=== PATIENT | male | born 1940 | race Hispanic/Latino ===

== ENCOUNTER → 2017-08-05 | Outpatient (CLI) | payer OTHER | END | disposition home or self-care (01) | LOC: OIH 08:01 | PROVIDERS: ATTEND Family Medicine | DX: I10 Essential (primary) hypertension (principal); I70.0 Atherosclerosis of aorta | CPT/HCPCS: 71046 ==

== ENCOUNTER 2022-02-11 17:25 | Emergency (ER) | payer OTHER ==
[~2022-02-11] VITALS: Ht 182.9 cm; Wt 81.6 kg
[2022-02-11] MEDS ORDERED: TETANUS/DIPHTHERIA TOXOID [ADULT] 0.5 ML VIAL IM ONE (18:30)
[2022-02-11 19:11] VITALS: BP 134/74
== END 2022-02-11 19:26 | disposition home or self-care (01) ==
LOC: EDH 17:25
DX: T23.122 Burn of first degree of single left finger (nail) except thumb (principal); I10 Essential (primary) hypertension; Z90.49 Acquired absence of other specified parts of digestive tract; M47.22 Other spondylosis with radiculopathy, cervical region; Z48.02 Encounter for removal of sutures; X08.8XXA Exposure to other specified smoke, fire and flames, initial encounter; Y93.89 Activity, other specified; Y92.89 Other specified places as the place of occurrence of the external cause; Y99.8 Other external cause status
CPT/HCPCS: 72040; 90471; 90714; 96372

== ENCOUNTER → 2023-03-20 | Outpatient (CLI) | payer OTHER ==
[~2023-03-20] MED LIST: BENZ-39 PO; NAPR-1023 PO; SULF1TAB42 PO; TAMS-1 PO
== END | disposition home or self-care (01) ==
LOC: RAH 11:16
PROVIDERS: ATTEND Family Medicine
DX: R04.2 Hemoptysis (principal)
CPT/HCPCS: 71046

== ENCOUNTER 2023-10-08 21:01 | Emergency (ER) | payer OTHER ==
[~2023-10-08] VITALS: Ht 182.9 cm; Wt 71.7 kg
[2023-10-08 21:49] LABS: BASOPHILS # (AUTO) 0.03 K/uL (0.00-0.20); BASOPHILS % (AUTO) 0.4 % (0.0-5.0); EOSINOPHILS # (AUTO) 0.08 K/uL (0.00-0.70); EOSINOPHILS % (AUTO) 0.9 % (0.0-8.0); HEMATOCRIT 40.2 % (42-54); IMMATURE GRANULOCYTE ABSOLUTE 0.06 K/uL (0-1); LYMPHOCYTES # (AUTO) 0.4 K/uL (1.0-4.8); LYMPHOCYTES % (AUTO) 4.6 % (21.0-51.0); MEAN CORPUSCULAR HEMOGLOBIN 27.7 pg (27.0-33.0); MEAN CORPUSCULAR HGB CONC 32.3 g/dL (32.0-36.0); MEAN CORPUSCULAR VOLUME 85.7 fL (79-99); MONOCYTES # (AUTO) 0.8 K/uL (0.1-1.0); MONOCYTES % (AUTO) 8.9 % (3.0-13.0); NEUTROPHILS # (AUTO) 7.2 K/uL (1.8-7.7); NEUTROPHILS % (AUTO) 84.5 % (40.0-77.0); PLATELET COUNT (AUTO) 174 K/uL (130-400); RED BLOOD CELL COUNT(AUTO) 4.69 MIL/uL (4.50-6.20); RED CELL DISTRIBUTION WIDTH 16.7 % (11.0-15.5); WHITE BLOOD COUNT (AUTO) 8.6 K/uL (4.8-10.8)
[2023-10-08 22:01] LABS: INR 1.04 (0.85-1.15); PROTHROMBIN TIME 11.2 SEC (9.6-11.6)
[2023-10-08 22:03] LABS: PARTIAL THROMBOPLASTIN TIME 27.9 SEC (26.3-35.5); POTASSIUM 3.7 mmol/L (3.5-5.1)
[2023-10-08 22:08] LABS: ALBUMIN 3.4 g/dL (3.5-5.0); BILIRUBIN,TOTAL 0.4 mg/dL (0.2-1.0); TOTAL PROTEIN, SERUM 6.9 g/dL (6.0-8.3)
[2023-10-08] MEDS: MORPHINE 4 MG SYG IVP ONE (22:31)
[2023-10-08] MEDS: ONDANSETRON 4MG INJ IVP ONE (22:32)
[2023-10-09] MEDS: CEFTRIAXONE 1G VIAL IVPB ONE (00:25)
[2023-10-09] MEDS: AZITHROMYCIN 500MG+NS 250ML 250 ML IVPB SCH (00:25)
[2023-10-09] MEDS ORDERED: AMOX-426 PO (02:04)
[2023-10-09] MEDS ORDERED: AZIT250T PO (02:04)
[2023-10-09 03:01] VITALS: BP 132/74; PULSE 76; RESP 16; O2SAT 98
== END 2023-10-09 03:03 | disposition home or self-care (01) ==
LOC: EDH 21:01
DX: S42.031A Displaced fracture of lateral end of right clavicle, initial encounter for closed fracture (principal); R51.9 Headache, unspecified; I10 Essential (primary) hypertension; Z79.899 Other long term (current) drug therapy; Z98.890 Other specified postprocedural states; W18.11XA Fall from or off toilet without subsequent striking against object, initial encounter; Y93.E1 Activity, personal bathing and showering; Y92.89 Other specified places as the place of occurrence of the external cause; Y99.8 Other external cause status
CPT/HCPCS: 99285; 72125; 29105; 96375; 71045; 80053; 85025; 85610; 85730; 36415; 73060; 73030; 71250; 74176; 70450; 93005; 96365; 96368; J2405; J2270; J0696; J0456

== ENCOUNTER 2023-10-13 18:42 | Emergency (ER) | payer OTHER ==
[~2023-10-13] VITALS: Ht 182.9 cm; Wt 70.3 kg
[~2023-10-13 18:42] MED LIST changes: +AMOX-426 PO; +AZIT250T PO
[2023-10-13] MEDS: ACETAMINOPHEN WITH CODEINE 1 TAB TAB PO ONE (19:21)
[2023-10-13 19:41] VITALS: BP 145/94; PULSE 97; RESP 18; O2SAT 96
[2023-10-13] MEDS ORDERED: ACET-2079 PO (20:16)
== END 2023-10-13 20:41 | disposition home or self-care (01) ==
LOC: EDH 18:42
DX: S42.001A Fracture of unspecified part of right clavicle, initial encounter for closed fracture (principal); M79.89 Other specified soft tissue disorders; M79.601 Pain in right arm; I10 Essential (primary) hypertension; W18.39XA Other fall on same level, initial encounter; Y93.89 Activity, other specified; Y92.89 Other specified places as the place of occurrence of the external cause; Y99.8 Other external cause status
CPT/HCPCS: 93971